=== PATIENT | female | born 1940 | race Caucasian/White ===

== ENCOUNTER → 2016-06-05 | Outpatient (CLI) | payer OTHER, BC | LOC: MMPC 09:00 | PROVIDERS: ATTEND Family Medicine | DX: N64.4 Mastodynia (principal); N32.89 Other specified disorders of bladder; K21.9 Gastro-esophageal reflux disease without esophagitis | CPT/HCPCS: 99213; G0463 ==

== ENCOUNTER → 2016-08-14 | Outpatient (CLI) | payer OTHER, BC | LOC: MMPC 09:00 | PROVIDERS: ATTEND Family Medicine | DX: J01.00 Acute maxillary sinusitis, unspecified (principal) | CPT/HCPCS: 99213; G0463 ==

== ENCOUNTER 2017-06-03 06:40 | Observation (INO) ==
--- NOTE | 2017-06-03 07:04 | PDOC ---
Female Problem HPI - General Chief Complaint: Genitourinary Complaint Stated Complaint: CAN'T URINATE Date Seen by Provider: 06/03/17 Time Seen by Provider: 06:45 Source: POSITIVE: Patient Exam Limitations: POSITIVE: No limitations - History of Present Illness Initial Comments: Fernanda Rich is a 77 year old woman coming in today with increasing central low abdominal pain over the past 1-2 weeks, worse over the past 3-4 days. She has had problems with urinary retention in the past and has needed to self-cath before, she hasn't been able to urinate on her own for the past few days. She also reports no bowel movements in the past 2 days, she normally has 1-2 per day. She has some achy pain in her bilateral flanks. She reports a weight loss over the past 2 months. She has no fevers, no shortness of breath, no chest pain , no rash, no headache. - Patient Home Medications Home Medications: Home Medications Aspirin [Lo-Dose Aspirin Ec] 1 tab PO QD tab 11/14/11 Calcium Carbonate/Vitamin D3 [Calcium 600 + Vit D 400 Caplet] 1 ea PO DAILY 15/05 Bethanechol Chloride 1 tab PO BID #180 tab 06/05/16 Lansoprazole [Prevacid] 30 mg PO DAILY #90 cap 06/05/16 Rosuvastatin Calcium [Crestor] 20 mg PO QHS #90 tab 06/05/16 Cyclosporine [Restasis] 1 drp EACH EYE BID #180 drp 06/09/16 - Patient Allergies Allergies/Adverse Reactions: Allergies 3 Allergy/AdvReac Type Severity Reaction Status Date / Time atorvastatin Allergy Intermediate NOT Verified 06/03/17 06:51 APPLICABLE Penicillins Allergy Intermediate ITCHING Verified 06/03/17 06:51 Past Medical History - heen HEENT History: Denies History Cardiovascular History: Hyperlipidemia Respiratory History: Denies History Gastrointestinal History: GERD Genitourinary History: Denies History Endocrine History: Denies History Musculoskeletal History: Other (please comment) Additional Musculoskeletal History: LT TOTAL KNEE Neurological History: Denies History Blood Disorders: Denies History Psychiatric History: Denies History Cancer History: Denies History History of MDRO: No Alcohol Use: Occasionally In the Past 12 Months, Have Used or Abuse Any Substance: None Previous Surgical History: Yes Type / Date of Surgery: LT TOTAL KNEE. HYSTER Past Medical History Reviewed: Reviewed - No Changes ROS - Limitations ROS Limitations: No Limitations Constitution: REPORTS: Weight Loss Cardiovascular: REPORTS: Denies Cardiac Symptoms Respiratory: REPORTS: Denies Resp Symptoms Neurological: REPORTS: Denies Neuro Symptoms Gastrointestinal: REPORTS: Denies GI Symptoms Endocrine: REPORTS: Denies Symptoms Musculoskeletal: REPORTS: Back Pain Genitourinary: REPORTS: Difficulty Urinating Eyes: REPORTS: Denies Symptoms ENT: REPORTS: Denies Symptoms Skin: REPORTS: Denies Skin Symptoms Lympathic: REPORTS: Denies Lympathic Symptoms Immunologic: POSITIVE: Denies Symptoms Psychiatric: POSITIVE: Denies Psych Symptoms Female Genitourinary Exam - General Appearance General Appearance: POSITIVE: Alert, Cooperative, No Acute Distress - HEENT HEENT: POSITIVE: Head Inspection Nml, Eyes Inspection Nml, Ears Inspection Nml - Neck Neck: POSITIVE: Normal Inspection - Respiratory Respiratory: POSITIVE: No Respiratory Distress, Breath Sounds Normal - Cardiovascular Cardiovascular: POSITIVE: Regular Rate and Rhythm, Heart Sounds Normal Peripheral Pulses: Radial (R): 2+, Radial (L): 2+ - Abdomen Abdomen: POSITIVE: Soft, Other (tenderness to the suprapubic area. no distention or guarding. 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 she has never had abdominal surgery. An indwelling preciado catheter was placed and about 500 ml urine was retrieved. The xray showed ileus with stool in the descending colon and an air fluid level in the ascending colon. I contacted Dr Mendez who accepted the patient for admission. She remained otherwise stable while in the emergency department. - Consult Consult (If Yes, Name of Consulting MD & Time Called): Yes (Dr Mendez, [id number]) Consulting MD will see pt:: POSITIVE: [facility] Admit Patient Care Time - Estimated PCT Patient Care Time (In Minutes): 30 Vital Signs - Recent Vital Signs Vital Signs: Vital Signs (Last 8 hours) Temp Pulse Resp BP Pulse Ox 06/03/17 06:41 97.4 F 82 16 131/79 96 - VS Reviewed Vital Signs Reviewed: Yes Discharge Clinical Impression: Ileus, Urinary retention Discharge Disposition: Admit to Inpatient Condition: Fair Follow Up With: NANETTE FERNÁNDEZ [Primary Care Provider] - Date Decision to Admit to Inpatient: 06/03/17 Time Decision to Admit to Inpatient: 08:47 (Dr Mendez to admit)
[2017-06-03] MEDS ORDERED: LIDOCAINE HCL 2 % 10 ML JELLY URO-JECT TOPICAL PRN (07:10)
[2017-06-03 07:38] LABS: BASOPHILS # (AUTO) 0.06 10*3/UL; BASOPHILS % (AUTO) 0.6 % (0-1); EOSINOPHILS # (AUTO) 0.05 10*3/UL; EOSINOPHILS % (AUTO) 0.5 % (0-8); Hematocrit [HCT] 38.4 % (37.0-47.0); LYMPHOCYTES # (AUTO) 1.34 10*3/uL; MEAN CORPUSCULAR HEMOGLOBIN 29.3 PG (27-31); MEAN CORPUSCULAR HGB CONC 33.9 g/dL (33-37); MEAN CORPUSCULAR VOLUME 86.7 FL (81-99); MEAN PLATELET VOLUME 10.2 FL (7.4-12.2); MONOCYTES # (AUTO) 1.37 10*3/UL (0.3-0.8); MONOCYTES % (AUTO) 13.4 % (5-15); NEUTROPHILS # (AUTO) 7.35 10*3/UL; NEUTROPHILS % (AUTO) 72.1 % (50-80); RED BLOOD COUNT 4.43 10^6/uL (4.20-5.40)
[2017-06-03 07:48] LABS: BLOOD UREA NITROGEN 12 mg/dL (7-22); BUN/CREATININE RATIO 17.14 (6-20); SERUM ALBUMIN 4.1 g/dL (3.5-4.8)
[2017-06-03 07:59] LABS: PLATELET MORPHOLOGY COMMENT NORMAL MORPHOLOGY (NORM); RBC MORPHOLOGY COMMENT NORMAL MORPHOLOGY (NORM); WBC MORPHOLOGY COMMENT SEE COMMENTS (NORM)
--- NOTE | 2017-06-03 08:36 | DI ---
2 VIEW ABDOMEN: HISTORY: 77-year-old female with constipation. COMPARISON: Abdomen and pelvis CT with intravenous contrast 04/26/2015. FINDINGS: Supine and upright views of the abdomen demonstrate air-fluid levels within mildly prominent/distended ascending colon +/- distal small bowel loops in the right lower quadrant. Otherwise, there are small to moderate amounts of gas and stool throughout the left colon, extending to the rectum. No definite pathologically dilated bowel loops. No pneumoperitoneum or obvious ascites. There is mild asymmetric elevation/eventration of the right hemidiaphragm, as before. IMPRESSION: 1. Average amount of colonic stool. 2. Air-fluid levels within large +/-small bowel loops in the right lower quadrant, suggesting mild nonspecific ileus.
[2017-06-03] MEDS ORDERED: Sodium Chloride 0.9% 1,000 ML PRIMARY IV ONE (08:40)
[2017-06-03 08:50] LABS: BILIRUBIN,URINE NEGATIVE (NEG); CLARITY,URINE CLEAR (CLEAR); COLOR,URINE YELLOW (Y); GLUCOSE, URINE (UA) NEGATIVE (NEG); OCCULT BLOOD,URINE Trace-intact (NEG); PROTEIN,URINE NEGATIVE (NEG); UROBILINOGEN,URINE 0.2 EU/dL (0.2)
[2017-06-03 09:05] LABS: BACTERIA,URINE RARE; SQUAMOUS EPITHELIAL CELL,UR RARE; URINE SAMPLE TYPE CATH SPECIMEN
--- NOTE | 2017-06-03 09:17 | DI ---
EXAM: US Retroperitoneal Complete, Renal CLINICAL HISTORY: 77-year-old female with urinary retention. TECHNIQUE: Real-time ultrasound of the retroperitoneum (complete) with image documentation. COMPARISON: 2 view abdomen earlier same date; abdomen and pelvis CT with intravenous contrast 04/26/2015. FINDINGS: Right kidney: Measures 10.7 cm in long axis. Anechoic right renal cyst, measuring up to 2.7 cm. No hydronephrosis, obvious nephrolithiasis, or mass. Left kidney: Measures 8.9 cm in long axis. Mild asymmetric left renal cortical thinning/atrophy, as before. No hydronephrosis, obvious nephrolithiasis, or mass. Bladder: Satisfactory position of Diamond catheter within the lumen of the urinary bladder. Estimated urinary bladder volume = 493 cc. Normal bilateral ureteral "jets". No obvious abnormal bladder wall thickening or mass IMPRESSION: 1. Satisfactory position of Diamond catheter within the lumen of the urinary bladder; urinary bladder estimated volume = 493 cc. 2. No hydronephrosis. 3. Mild asymmetric left renal cortical thinning/atrophy, grossly stable since the prior CT.
--- NOTE | 2017-06-03 09:55 | PDOC ---
HPI - History of Present Illness Date of Service: 06/03/17 Time of Service: 10:00 Chief Complaint: Problem with urination the last 2 weeks and lower abdominal pain History of Present Illness: This is a 77 years old female with medical history significant for history of hypercholesterolemia, GERD and a history of urinary retention before who presented to the hospital with history of lower abdominal pain which is being going on for about 2 weeks. The pain is in the lower abdomen doesn't go elsewhere and was coming and going initially then became constant yesterday in addition she started to have problem with urination, she is unable to empty her bladder well which started about 2 months she started back on self- catheterization and did it for a few days and then she was able to pee after that but then last night because of the problem with urination her tried to do a catheterization and had less than usual and today because of the constant pain and an inability to urinate she came into the ER. she had a catheter inserted and the she had 500 ml of urine which was clear. In addition she did have an ultrasound of the abdomen with showed some cortical thinning of the left kidney which was present before. Also she had mild nonspecific ileus on the x-ray and she was admitted. She is denying nausea or vomiting. She did give a history of problem with the bladder about 3 years ago she saw a urologist in [place] was doing self-catheterization done by her maybe like once a day for a year and half and that apparently have bladder function improved so she was not doing it until 2 months ago she did for few days and and 1 last night. She denied other symptoms. No fever. No chills but she did say she felt tired yesterday. After the catheter she feel her pain is less than when she came in. Past Medical History Medical History: 1. Hypercholesterolemia. 2. GERD. 3. History of for urinary retention before needed self-catheterization. Surgical History: 1. Knee replacement. 2. History of hysterectomy Family History: Reviewed an Not Pertinent Past Social History: Does not smoke, rarely drinks no drugs. Tobacco Use: Never Smoker In the Past 12 Months, Have Used or Abuse Any of the Following Substance: None Alcohol Use: Rarely Medication / Allergies Home Medications: Home Medications Medication Instructions Recorded Confirmed Type Aspirin [Lo-Dose Aspirin Ec] 1 tab PO QD tab 11/14/11 06/03/17 History Calcium Carbonate/Vitamin D3 1 ea PO DAILY 11/14/11 06/03/17 History [Calcium 600 + Vit D 400 Caplet] Bethanechol Chloride 1 tab PO BID #180 tab 06/05/16 06/03/17 Rx Lansoprazole [Prevacid] 30 mg PO DAILY #90 cap 06/05/16 06/03/17 Rx Rosuvastatin Calcium [Crestor] 20 mg PO QHS #90 tab 06/05/16 06/03/17 Rx Cyclosporine [Restasis] 1 drp EACH EYE BID #180 drp 06/09/16 06/03/17 Rx Allergies/Adverse Reactions: Allergies 3 Allergy/AdvReac Type Severity Reaction Status Date / Time atorvastatin Allergy Intermediate NOT Verified 06/03/17 06:51 APPLICABLE Penicillins Allergy Intermediate ITCHING Verified 06/03/17 06:51 Review of Systems - Review of Systems All Systems: Reviewed & No Additional Complaints Except as Stated Exam - Vitals Vital Signs: Vital Signs Temperature 97.4 F Temperature Source Temporal Artery Scan Pulse Rate [Pulse Oximeter 87 Right] Respiratory Rate 16 Blood Pressure [Left Arm] 124/77 Pulse Ox 96 Oxygen Delivery Method Room Air - General General Appearance: No Acute Distress, Cooperative - Head Head Exam: Normal Inspection, Atraumatic - Eye Eye Exam: POSITIVE: Normal Appearance - ENT ENT Exam: POSITIVE: Normal Exam - Neck Neck Exam: Normal Inspection - Respiratory Respiratory Exam: POSITIVE: Clear to Auscultation - Bilaterally - Cardiovascular Cardiovascular Exam: POSITIVE: RRR - GI/Abdominal GI/Abdominal Exam: POSITIVE: Normal Bowel Sounds, Non Distended, Soft, No Organomegaly Additional GI/Abdominal Exam Details: There is minimal tenderness in the lower abdomen more towards the left side. - Rectal Rectal Exam: POSITIVE: Deferred - External Exam: POSITIVE: Deferred Exam: POSITIVE: Deferred - Extremities Extremities Exam: POSITIVE: Normal Inspection - Back Back Exam: POSITIVE: Normal Inspection - Neurological Neurological Exam: POSITIVE: Alert, Oriented x 3, CN II-XII Intact, Speech Intact / Clear, Moves All Extremities Equally - Psychiatric Psychiatric Exam: POSITIVE: Normal Affect - Integumentary Integumentary Exam: POSITIVE: Normal Color Results - Labs CBC and BMP: 06/03/17 07:34 06/03/17 07:34 - Imaging Status: Report Reviewed by Me (Abdominal x-ray: Average amount of colonic stool. 2. Air-fluid levels within large +/-small bowel loops in the right lower quadrant, suggesting mild nonspecific ileus. US abdomen No hydronephrosis. Mild asymmetric left renal cortical thinning/atrophy, grossly stable since the prior CT) Assessment and Plan - Patient Problems (1) Urinary retention Current Visit: Yes Status: Acute Comment: This seemed to be recurrence of an old problem. Does not look like there is an infection. Code(s): R33.9 - Retention of urine, unspecified (2) Ileus Current Visit: Yes Status: Acute Comment: X-ray suggest maybe a nonspecific ileus mild. Clinically she appears well I think will give a trial of clear diet if she didn't vomit may advance later on. There is some mild tenderness in the abdomen if the pain or tenderness persist by tomorrow I think will do a CT of her abdomen. Code(s): K56.7 - Ileus, unspecified (3) GERD (gastroesophageal reflux disease) Current Visit: No Status: Acute Onset Date: 05/28/14 Comment: Same med Code(s): K21.9 - Gastro-esophageal reflux disease without esophagitis Qualifiers: Esophagitis presence: without esophagitis Qualified Code(s): K21.9 - Gastro -esophageal reflux disease without esophagitis; K21.9 - Gastro-esophageal reflux disease without esophagitis; K21.9 - Gastro-esophageal reflux disease without esophagitis
[2017-06-03] MEDS ORDERED: NORMAL SALINE 10 ML SYRINGE FLUSH IVP PRN (10:05)
[2017-06-03] MEDS ORDERED: ACETAMINOPHEN 325 MG TABLET PO PRN (10:05)
[2017-06-03] MEDS ORDERED: LIDOCAINE W/ SODIUM BICARB 0.5 ML SYR SUBD PRN (10:05)
[2017-06-03] MEDS ORDERED: CALCIUM CARBONATE 500 MG (TUMS) CHEWABLE TABLET PO PRN (10:05)
[2017-06-03] MEDS ORDERED: ONDANSETRON 4 MG/2 ML VIAL IVP PRN (10:05)
[2017-06-03] MEDS ORDERED: Senna Tab 8.6 MG TAB PO PRN (10:07)
[2017-06-03] MEDS: ASPIRIN EC 81 MG TABLET PO SCH (10:49)
[2017-06-03] MEDS ORDERED: ASPIRIN 81 MG (BABY) CHEWABLE TABLET ONE (10:49)
[2017-06-03] MEDS: Sodium Chloride 0.9% 1,000 ML IV SCH (10:49)
[2017-06-03] MEDS ORDERED: DOCUSATE 100 MG CAPSULE ONE (10:49)
[2017-06-03] MEDS: DOCUSATE 100 MG CAPSULE PO SCH ×3 (10:49→21:05)
[2017-06-03] MEDS ORDERED: Sodium Chloride 0.9% 1,000 ML ONE (10:51)
[2017-06-03] MEDS: LATANOPROST 0.005% 2.5 ML EYE DROPS EACH EYE SCH ×2 (19:53→21:03)
[2017-06-03] MEDS: Rosuvastatin Tab 20 MG TAB PO SCH ×2 (19:54→21:03)
[2017-06-03] MEDS: BETHANECHOL CHLORIDE 25 MG PO SCH ×2 (19:54→21:03)
[2017-06-03] MEDS: CYCLOSPORINE OPTH EACH EYE SCH ×2 (19:55→21:03)
[2017-06-04] MEDS: Sodium Chloride 0.9% 1,000 ML IV SCH (00:42)
[2017-06-04 04:54] LABS: BASOPHILS # (AUTO) 0.03 10*3/UL; BASOPHILS % (AUTO) 0.4 % (0-1); EOSINOPHILS # (AUTO) 0.12 10*3/UL; EOSINOPHILS % (AUTO) 1.8 % (0-8); Hematocrit [HCT] 34.5 % (37.0-47.0); Hemoglobin [HGB] 11.3 g/dL (12.0-16.0); LYMPHOCYTES # (AUTO) 1.31 10*3/uL; MEAN CORPUSCULAR HEMOGLOBIN 28.8 PG (27-31); MEAN CORPUSCULAR HGB CONC 32.8 g/dL (33-37); MEAN PLATELET VOLUME 10.5 FL (7.4-12.2); MONOCYTES # (AUTO) 0.86 10*3/UL (0.3-0.8); MONOCYTES % (AUTO) 12.6 % (5-15); NEUTROPHILS # (AUTO) 4.49 10*3/UL; NEUTROPHILS % (AUTO) 65.6 % (50-80); RED BLOOD COUNT 3.92 10^6/uL (4.20-5.40)
[2017-06-04 05:04] LABS: PLATELET MORPHOLOGY COMMENT NORMAL MORPHOLOGY (NORM); RBC MORPHOLOGY COMMENT NORMAL MORPHOLOGY (NORM); WBC MORPHOLOGY COMMENT NORMAL MORPHOLOGY (NORM)
[2017-06-04] MEDS ORDERED: OMEPRAZOLE 20 MG CAPSULE PO SCH (07:00)
--- NOTE | 2017-06-04 07:54 | PDOC(PROG) ---
Date and Time of Service: 06/04/2017 7:51 AM Interval History: Subjective She states she had some pain last night and took some Tylenol. The pain is nearly gone. Abdomen is mat machine tender though. No vomiting. She is passing gas no bowel movement yet. Objective : Data - Labs CBC and BMP: 06/04/17 04:20 06/03/17 07:34 Objective : Exam - General General Appearance: No Acute Distress, Cooperative, Thin - Head Head Exam: Normal Inspection - Eye Eye Exam: Normal Appearance - ENT ENT Exam: Normal Exam - Neck Neck Exam: Normal Inspection - Respiratory Respiratory Exam: Clear to Auscultation - Bilaterally - Cardiovascular Cardiovascular Exam: RRR - GI/Abdominal GI/Abdominal Exam: Normal Bowel Sounds, Non Distended, Soft, No Organomegaly Additional GI/Abdominal Exam Details: Some tenderness in the lower abdomen not severe. - Rectal Rectal Exam: Deferred - External Exam: Deferred - Extremities Extremities Exam: Normal Inspection - Back Back Exam: Normal Inspection - Neurological Neurological Exam: Alert, Oriented x 3, CN II-XII Intact, Speech Intact / Clear , Moves All Extremities Equally - Psychiatric Psychiatric Exam: Normal Affect - Integumentary Integumentary Exam: Normal Color Assessment and Plan - Patient Problems (1) Urinary retention Current Visit: Yes Status: Acute Comment: She had this issue before, I think will pull the catheter out after the CT and if it is negative we'll discharge her and follow up with her urologist in [employer]. The know how to do the catheterization and he will do it. Code(s): R33.9 - Retention of urine, unspecified (2) Ileus Current Visit: Yes Status: Acute Comment: Not sure about the significance of the x-ray finding looks nonspecific to me. Her abdomen is really benign on exam this minimal tenderness in not impressive. But because of persistent symptoms I think will do the CT to make sure there is no other pathologies and if negative we'll discharge her home. Code(s): K56.7 - Ileus, unspecified (3) GERD (gastroesophageal reflux disease) Current Visit: No Status: Acute Onset Date: 05/28/14 Comment: Same med Code(s): K21.9 - Gastro-esophageal reflux disease without esophagitis Qualifiers: Esophagitis presence: without esophagitis Qualified Code(s): K21.9 - Gastro -esophageal reflux disease without esophagitis; K21.9 - Gastro-esophageal reflux disease without esophagitis; K21.9 - Gastro-esophageal reflux disease without esophagitis
[2017-06-04] MEDS ORDERED: Calcium/Vit D 600mg/400u Tab 1 TAB TABLET PO SCH (09:00)
[2017-06-04 09:36] VITALS: BP 127/67; RESP 20; TEMP 97; O2SAT 94
[2017-06-04] MEDS: DOCUSATE 100 MG CAPSULE PO SCH (10:22)
[2017-06-04] MEDS: ASPIRIN EC 81 MG TABLET PO SCH (10:22)
[2017-06-04] MEDS: BETHANECHOL CHLORIDE 25 MG PO SCH (10:23)
[2017-06-04] MEDS: CYCLOSPORINE OPTH EACH EYE SCH (11:58)
--- NOTE | 2017-06-04 12:24 | DI ---
CT ABDOMEN SCAN WITH IV CONTRAST, 06/04/2017 7:45 AM : Clinical History: Abdominal pain. Previous Exam: 04/26/2015. Scans are performed from the lower lung bases through the liver and kidneys with IV contrast. 75 ml o f Isovue 300 was injected IV. No oral or rectal contrast was ordered. 3T atelectasis is present in both lung bases. The liver is normal. The gallbladder is contracted but grossly normal. There is no abnormality of the spleen, pancreas, and adrenal glands. Both kidneys are normal in size, shape, position and contour. There is no hydronephrosis or hydroureter. No renal or ureteral calculi are present. There are no abnormal retrocrural or periaortic nodes. No ascites is pr esent. READING: Normal CT abdomen scan. CT PELVIS SCAN WITH IV CONTRAST, 06/04/2017 7:45 AM: Clinical History: See above. Previous Exam: 04/26/2015. Scans are performed from just superior to the umbilicus to the symphysis pubis with IV contrast. This is the same bolus of contrast used for the CT scans of the abdomen. Scans through the lower abdomen and pelvis show no masses or abnormal fluid collections. There is no adenopathy. The appendix is normal. The small bowel, terminal ileum, and ileocecal valve are normal. There is very mild inflammatory/infiltrative change involving the sigmoid colon and that portion that is contiguous with the left posterolateral margin of the bladder. This inflammatory change extends t o the peritoneum in the left lower quadrant. Diverticula are present and this most likely represents a very early diverticulitis. There is gas in the anterior aspect of the bladder and this patient has had multiple recent catheterizations for urinary retention. This gas is most likely secondary to the catheterizations rather than a colovesicular fistula. The bladder is distended. There is a very small umbilical hernia through which only mesenteric fat has herniated. The patient is status post hystere ctomy and bilateral salpingo-oophorectomy. READIN. There are some periserosal inflammatory/infiltrative change in the left lower quadrant associated with the proximal sigmoid colon that is contiguous with the bladder. This is consistent with very ea rly diverticulitis without evidence of a diverticular abscess. Although there is gas in the bladder, this most likely is secondary to the history of recent catheterizations. This history would make pres ence of a colovesicular fistula much less likely. 2. The remainder of the examination is normal.
--- NOTE | 2017-06-04 12:54 | DCSUMMARY ---
Hospitalization Summary Admit Date: 06/03/2017 Discharge Date: 06/04/17 Hospital Course: Discharge diagnoses 1. Urinary retention, patient will resume self-catheterization 2. very early diverticulitis 3. GERD 4. Hypercholesterolemia Hospital course This is a 77 years old female with medical history significant for history of hypercholesterolemia, GERD and history of hypertension before who presented to the hospital with history of lower abdominal pain been going on for about 2 weeks. The pain is in the lower abdomen doesn't go elsewhere was coming and going initially then become more constant did before admission in addition she did start to have problem with urination, she was unable to empty her bladder well. This started about 2 months ago. As she started to have problem with urination she started back on self-catheterization but she did it only for few days and was able to urinate after that until the night before admission when she had problem with urination her tried to do a catheterization and he had out less than usual and on the day of admission because of constant pain and inability to urinate she came into the ER. She had a catheter inserted and she had 500 ml of urine which was clear. In addition she did have an ultrasound of the abdomen which showed some cortical thinning of the left kidney which was present before. Also she had nonspecific ileus. And she was admitted. She denied nausea or vomiting. She did give a history of problem with urination that started 3 years back she saw urologist in [place] was doing a self-catheterization done by the maybe once a day for a year and a half and after that bladder function improved so she was able to stay off catheterization until 2 months before admission. She did it for a few days as I said and once on the night before admission. There was no fever. Her pain did somewhat improve after the catheterization. Her exam when I saw her, abdomen was not distended was soft there is some minimal tenderness in the lower abdominal quadrant. There was no white count and no fever. 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 because of the tenderness and the pain I did order a CT of the abdomen which showed very early diverticulitis. I discussed the finding with the patient I offered her to stay another night on IV antibiotic and if things remain stable discharge her home which was my preference or start oral antibiotics her preference was to discharge and be on oral antibiotics as she has an appointment with her gum worker tomorrow. So we discharge her on oral antibiotic and instructed her in case it developed fever or vomiting or worsening pain to come back to the hospital. We'll try to get an appointment for her with urologist in [place] also with her primary and with Dr. Olmstead in a few weeks to see whether she is a candidate for a colonoscopy. Last time she had a colonoscopy was 8 or 9 years ago. Laboratory Results 06/04/17 Range/Units 04:20 WBC 6.84 (4.8-10.8) 10^3/uL RBC 3.92 L (4.20-5.40) 10^6/uL Hgb 11.3 L (12.0-16.0) g/dL Hct 34.5 L (37.0-47.0) % MCV 88.0 (81-99) FL MCH 28.8 (27-31) PG MCHC 32.8 L (33-37) g/dL RDW Std Deviation 41.2 (39-50) fL RDW Coeff of Navneet 13.2 (11.5-14.5) % Plt Count 220 (140-350) 10*3/uL MPV 10.5 (7.4-12.2) FL Immature Gran % (Auto) 0.4 (0-5) % Neut % (Auto) 65.6 (50-80) % Lymph % (Auto) 19.2 (10-50) % Gooding % (Auto) 12.6 (5-15) % Eos % (Auto) 1.8 (0-8) % Baso % (Auto) 0.4 (0-1) % Immature Gran # (Auto) 0.03 10*3/UL Neut # (Auto) 4.49 10*3/UL Lymph # (Auto) 1.31 10*3/uL Gooding # (Auto) 0.86 H (0.3-0.8) 10*3/UL Eos # (Auto) 0.12 10*3/UL Baso # (Auto) 0.03 10*3/UL WBC Morphology Comment Normal morphology (NORM) Plt Morphology Comment Normal morphology (NORM) RBC Morph Comment Normal morphology (NORM) Discharge suction Diet clear for the next 2 days she still okay then she can advance her diet gradually Activity as started Medications Home Medications Medication Instructions Recorded Confirmed Type Aspirin [Aspirin EC] 1 tab PO QD tab 11/14/11 06/03/17 History Calcium Carbonate/Vitamin D3 1 ea PO DAILY 11/14/11 06/03/17 History [Calcium 600 + Vit D 400 Caplet] Bethanechol Chloride 1 tab PO BID #180 tab 06/05/16 06/03/17 Rx Lansoprazole [Prevacid] 30 mg PO DAILY #90 cap 06/05/16 06/03/17 Rx Rosuvastatin Calcium [Crestor] 20 mg PO QHS #90 tab 06/05/16 06/03/17 Rx Cyclosporine [Restasis] 1 drp EACH EYE BID #180 drp 06/09/16 06/03/17 Rx Ciprofloxacin HCl [Cipro HCl] 500 mg PO Q12H #14 tab 06/04/17 Rx metroNIDAZOLE Tab [Flagyl Tab] 500 mg PO TID #21 tab 06/04/17 Rx Follow-up with PCP in 1-2 weeks, her urologist in [place] 1-2 weeks, Dr. Olmstead in 4-6 weeks Condition at discharge was stable for discharge Exam - Vitals Vital Signs: Vital Signs Temperature 97.0 F Temperature Source Temporal Artery Scan Pulse Rate [Apical] 74 Pulse Rate [Pulse Oximeter 69 Right] Respiratory Rate 20 Blood Pressure [Left Arm] 127/67 Pulse Ox 94 Oxygen Delivery Method Room Air Height 5 ft 2 in Weight 124 lb 3.2 oz Patient Problems - Patient Problem List (1) Urinary retention Current Visit: Yes Status: Acute Code(s): R33.9 - Retention of urine, unspecified Category: Medical (2) Ileus Current Visit: Yes Status: Acute Code(s): K56.7 - Ileus, unspecified Category: Medical (3) GERD (gastroesophageal reflux disease) Current Visit: No Status: Acute Onset Date: 05/28/14 Code(s): K21.9 - Gastro-esophageal reflux disease without esophagitis Qualifiers: Esophagitis presence: without esophagitis Qualified Code(s): K21.9 - Gastro -esophageal reflux disease without esophagitis; K21.9 - Gastro-esophageal reflux disease without esophagitis; K21.9 - Gastro-esophageal reflux disease without esophagitis Category: Medical
== END 2017-06-04 13:28 | disposition home or self-care (01) ==
LOC: ER 06:40 → MED/SURG 06:40
PROVIDERS: ADMIT Internal Medicine; ATTEND Internal Medicine